=== PATIENT | female | born 1945 | race Caucasian/White ===

== ENCOUNTER → 2024-08-31 | Outpatient (CLI) | payer OTHER, SELFPAY ==
[2024-08-31 15:29] LABS: Glucose Estimated Average 128 mg/dL (80-131); Hemoglobin A1C 6.1 % Hgb (4.8-6.0)
[2024-08-31 15:33] LABS: Creatinine MALB Rnd Ur 82 mg/dL (30-125); Microalbumin, Random Urine < 3 mg/L (0-300)
[2024-08-31 15:33] LABS: Albumin, Serum 4.7 gm/dL (3.4-4.8); Anion Gap 8 (7-16); BUN/Creatinine Ratio 15 Ratio (12-20); Blood Urea Nitrogen 17 mg/dL (9-23); Calcium 9.7 mg/dL (8.3-10.6); Calcium (Corrected) 9.7 mg/dL (8.5-10.1); Carbon Dioxide 27.7 mMol/L (20.0-31.0); Chloride 104 mMol/L (98-107); Creatinine (Component) 1.1 mg/dL (0.6-1.3); Glucose 174 mg/dL (74-106); Osmolality,Calculated 284 (275-295); Phosphorous 3.2 mg/dL (2.4-5.1); Potassium 3.8 mMol/L (3.4-5.1); Sodium 140 mMol/L (136-145); Uric Acid 7.6 mg/dL (3.1-7.8); eGFR 51 See Note
== END | disposition home or self-care (01) ==
PROVIDERS: PCP Internal Medicine; Referring Provider Internal Medicine; Visit Provider Internal Medicine
DX: I10 Essential (primary) hypertension (principal)
CPT/HCPCS: 36415; 80069; 82043; 82570; 83036; 84550

== ENCOUNTER 2025-02-01 10:35 | Day surgery (SDC) | payer OTHER, SELFPAY ==
[2025-01-31 12:23] VITALS: BMI 21.9
[2025-02-01] VITALS (9 sets, daily range): BP systolic 80–160; BP diastolic 40–95; PULSE 61–89; RESP 11–26; TEMP 36.5–37; O2SAT 93–100; BMI 23.3
[2025-02-01] MEDS: SODIUM CHLORIDE 0.9% 500 ML 500 ML 20 ML IV (11:48)
[2025-02-01] MEDS: ONDANSETRON INJ 2 MG/ML INJ 2 ML 4 MG IV (11:54)
[2025-02-01] MEDS: fentaNYL CIT INJ 50 mCg/ML AMP 2ML (ASD USE ONLY) IV (11:56)
[2025-02-01] MEDS: MIDAZOLAM INJ 1 MG/ML VIAL 2 ML (ASD USE ONLY) 2 MG IV (11:56)
[2025-02-01] MEDS: DiphenhydrAMINE INJ 50 MG/ML VIAL 25 MG IV (12:02)
== END 2025-02-01 13:15 | disposition home or self-care (01) ==
PROVIDERS: PCP Internal Medicine; Referring Provider Specialist; Visit Provider Specialist
PROC: 0DBE8ZX Excision of Large Intestine, Via Natural or Artificial Opening Endoscopic, Diagnostic (ICD-10-PCS; CPT 45380; principal; 2025-02-01 10:30)
DX: K63.5 Polyp of colon (principal); K64.9 Unspecified hemorrhoids; K57.30 Diverticulosis of large intestine without perforation or abscess without bleeding; I25.10 Atherosclerotic heart disease of native coronary artery without angina pectoris; Z95.1 Presence of aortocoronary bypass graft
CPT/HCPCS: 45380; A4649; J1200; J2250; J2405; J3010; J7040

== ENCOUNTER → 2025-02-17 | Outpatient (CLI) | payer OTHER, SELFPAY ==
[2025-02-17 13:07] LABS: Uric Acid 7.5 mg/dL (3.1-7.8)
== END | disposition home or self-care (01) ==
LOC: COPL 11:43
PROVIDERS: PCP Internal Medicine; Referring Provider Internal Medicine; Visit Provider Internal Medicine
DX: M10.9 Gout, unspecified (principal)
CPT/HCPCS: 36415; 84550

== ENCOUNTER → 2025-02-20 | Outpatient (CLI) | payer OTHER, SELFPAY ==
--- NOTE | 2025-02-20 | XR_ITS ---
Examination: Foot, right, 3 views Technique: AP, oblique, lateral views foot, 3 views Date and time of exam: February 20, 2025 1229 hours INDICATIONS: Right foot redness pain and swelling beginning one week ago. FINDINGS: Prominent osteopenia No fracture No cortical bone destruction No opaque foreign body IMPRESSION: No fracture or cortical bone destruction
--- NOTE | 2025-02-20 | XR_ITS ---
Examination: Toes, right foot 3 views Technique: Toes AP oblique lateral 3 views right foot Date and time of exam: February 20, 2025 1233 hours INDICATIONS: Pain and swelling involving the toes beginning one week ago. FINDINGS: Prominent osteopenia No fractures. No cortical bone destruction IMPRESSION: No cortical bone destruction or foreign bodies Mild bunion deformity
== END | disposition home or self-care (01) ==
PROVIDERS: PCP Internal Medicine; Referring Provider Internal Medicine; Visit Provider Internal Medicine
DX: M79.671 Pain in right foot (principal); M21.611 Bunion of right foot
CPT/HCPCS: 73630; 73660

== ENCOUNTER → 2025-05-12 | Outpatient (CLI) | payer OTHER, SELFPAY ==
[2025-05-12 08:34] LABS: Basophils # (Auto) 0.1 Thou/mm3 (0.0-0.2); Basophils % (Auto) 1 % (0-2.5); Eosinophils # (Auto) 0.3 Thou/mm3 (0.0-0.5); Eosinophils % (Auto) 4 % (0-10); Hematocrit 42.7 % (36.0-46.0); Hemoglobin 13.7 g/dL (12.0-16.0); Immature Granulocytes Auto 0.03 Thou/mm3 (0.00-0.00); Lymphocytes # (Auto) 1.7 Thou/mm3 (1.0-4.8); Lymphocytes % (Auto) 19 % (10-50); Mean Corpuscular HGB Conc 32.1 g/dl (31.0-37.0); Mean Corpuscular Hemoglobin 28.8 pg (25.0-35.0); Mean Corpuscular Volume 90 fL (80-100); Monocytes # (Auto) 0.7 Thou/mm3 (0.0-0.8); Monocytes % (Auto) 8 % (0-12); Neutrophils # (Auto) 5.8 Thou/mm3 (1.8-7.7); Neutrophils % (Auto) 67 % (37-80); Nucleated Red Blood Cell # 0.00 Thou/mm3 (0.00-0.00); Nucleated Red Blood Cell % 0 /100 WBC (0); Platelet Count 303 Thou/mm3 (140-440); RDW Standard Deviation 43.8 fL (36.4-46.3); Red Blood Count 4.75 Miln/mm3 (4.00-5.20); White Blood Count 8.6 Thou/mm3 (3.6-11.0)
[2025-05-12 08:43] LABS: Glucose Estimated Average 143 mg/dL (80-131); Hemoglobin A1C 6.6 % Hgb (4.8-6.0)
[2025-05-12 08:53] LABS: Alanine Aminotransferase 10 U/L (10-49); Albumin, Serum 4.2 gm/dL (3.4-4.8); Albumin/Globulin Ratio 2.0 (1.2-2.2); Alkaline Phosphatase 82 U/L (46-116); Amylase 52 U/L (30-118); Anion Gap 10 (7-16); Aspartate Amino Transferase 16 U/L (0-34); BUN/Creatinine Ratio 20 Ratio (12-20); Bilirubin,Total 0.3 mg/dL (0.3-1.2); Blood Urea Nitrogen 20 mg/dL (9-23); Calcium 9.6 mg/dL (8.3-10.6); Calcium (Corrected) 9.6 mg/dL (8.5-10.1); Carbon Dioxide 27.3 mMol/L (20.0-31.0); Cardiac Risk Estimate 4.3 RATIO (3.7-5.6); Chloride 107 mMol/L (98-107); Cholesterol 198 mg/dL (132-200); Creatinine (Component) 1.0 mg/dL (0.6-1.3); Free T4 (Free Thyroxine) 1.28 ng/dL (0.89-1.76); Globulin 2.1 gm/dL (2.3-3.5); Glucose 117 mg/dL (74-106); HDL Cholesterol 46 mg/dL (40-60); LDL Cholesterol,Calculated 129 mg/dL (0-130); Lipase 61 U/L (12-53); Osmolality,Calculated 290 (275-295); Potassium 4.8 mMol/L (3.4-5.1); Sodium 144 mMol/L (136-145); Thyroid Stimulating Hormone 0.58 uIU/mL (0.55-4.78); Total Protein 6.3 gm/dL (5.7-8.2); Triglycerides 116 mg/dL (30-150); Uric Acid 6.9 mg/dL (3.1-7.8); eGFR 57 See Note
[2025-05-12 08:54] LABS: Vitamin D 25 Hydroxy Total 45.2 ng/mL (7.3-40.2)
[2025-05-12 09:09] LABS: Creatinine MALB Rnd Ur 103 mg/dL (30-125); Microalbumin, Random Urine < 3 mg/L (0-300)
== END | disposition home or self-care (01) ==
LOC: COPL 07:21
PROVIDERS: PCP Internal Medicine; Referring Provider Internal Medicine; Visit Provider Internal Medicine
DX: Z00.00 Encounter for general adult medical examination without abnormal findings (principal); E55.9 Vitamin D deficiency, unspecified
CPT/HCPCS: 36415; 80053; 80061; 82043; 82150; 82306; 82570; 83036; 83690; 84439; 84443; 84550; 85025

== ENCOUNTER 2025-09-13 06:28 | Day surgery (SDC) | payer OTHER, SELFPAY ==
[2025-09-11 15:50] VITALS: BMI 22.8
--- NOTE | 2025-09-12 07:00 | EKG_ITS ---
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 : 1945 Requested By: Villa Boss Order Number: [id number] Reading MD: Villa Boss Measurements Intervals [place] Rate: 60 P: 53 MO: 148 QRS: 70 QRSD: 85 T: 85 QT: 402 QTc: 403 Interpretive Statements SINUS RHYTHM WITH OCCASIONAL SUPRAVENTRICULAR PREMATURE COMPLEXES POSSIBLE LEFT ATRIAL ENLARGEMENT [-0.1mV P WAVE IN V1/V2] LOW QRS VOLTAGE IN PRECORDIAL LEADS [QRS DEFLECTION < 1.0 mV IN CHEST LEADS] SEPTAL MYOCARDIAL INFARCTION , OF INDETERMINATE AGE [40+ ms Q WAVE IN V1/V2] Compared to ECG 02/12/2022 12:48:35 Low QRS voltage now present Myocardial infarct finding now present Short MO interval no longer present T-wave abnormality no longer present /store/S0/[id number]/ecg/[id number].pdf
[2025-09-12 12:01] LABS: Basophils # (Auto) 0.1 Thou/mm3 (0.0-0.2); Basophils % (Auto) 1 % (0-2.5); Eosinophils # (Auto) 0.3 Thou/mm3 (0.0-0.5); Eosinophils % (Auto) 3 % (0-10); Hematocrit 43.9 % (36.0-46.0); Hemoglobin 14.5 g/dL (12.0-16.0); Immature Granulocytes Auto 0.03 Thou/mm3 (0.00-0.00); Lymphocytes # (Auto) 1.7 Thou/mm3 (1.0-4.8); Lymphocytes % (Auto) 19 % (10-50); Mean Corpuscular HGB Conc 33.0 g/dl (31.0-37.0); Mean Corpuscular Hemoglobin 29.7 pg (25.0-35.0); Mean Corpuscular Volume 90 fL (80-100); Monocytes # (Auto) 0.8 Thou/mm3 (0.0-0.8); Monocytes % (Auto) 9 % (0-12); Neutrophils # (Auto) 5.9 Thou/mm3 (1.8-7.7); Neutrophils % (Auto) 67 % (37-80); Nucleated Red Blood Cell # 0.00 Thou/mm3 (0.00-0.00); Nucleated Red Blood Cell % 0 /100 WBC (0); Platelet Count 238 Thou/mm3 (140-440); RDW Standard Deviation 43.7 fL (36.4-46.3); Red Blood Count 4.88 Miln/mm3 (4.00-5.20); White Blood Count 8.8 Thou/mm3 (3.6-11.0)
[2025-09-12 12:19] LABS: INR 1.0 (0.9-1.3); Partial Thromboplastin Time 25.4 Seconds (22.0-36.0); Prothrombin Time 10.3 Seconds (9.0-12.2)
[2025-09-12 14:37] LABS: Anion Gap 12 (7-16); Calcium 10.1 mg/dL (8.3-10.6); Carbon Dioxide 26.0 mMol/L (20.0-31.0); Chloride 107 mMol/L (98-107); Potassium 5.0 mMol/L (3.4-5.1); Sodium 145 mMol/L (136-145)
[2025-09-12 14:48] LABS: BUN/Creatinine Ratio 15 Ratio (12-20); Blood Urea Nitrogen 18 mg/dL (9-23); Creatinine (Component) 1.2 mg/dL (0.6-1.3); Estimated Creatinine Clearance 30.1 mL/min (>60); Glucose 96 mg/dL (74-106); Osmolality,Calculated 290 (275-295); eGFR 46 See Note
[2025-09-13] VITALS (17 sets, daily range): BP systolic 120–169; BP diastolic 48–80; PULSE 47–66; RESP 10–21; TEMP 36.2–36.4; O2SAT 96–100
--- NOTE | 2025-09-13 07:20 | CHAP ---
Visited with patient and gave encouragement and prayer.
--- NOTE | 2025-09-13 08:43 | ESOP_ITS ---
RE: NICOLAS CONNELL : 1945 DATE OF OPERATION: 09/13/2025 PROCEDURES PERFORMED: 1. Diagnostic left heart cardiac catheterization, selective coronary angiogram, left ventricular angiogram, bypass graft angiogram, CPT 82839. 2. Selective cannulation of left subclavian artery, CPT 68263. 3. Iliofemoral angiography followed by manual compression. 4. Ultrasound-guided access to right femoral artery. DIAGNOSES: Coronary artery disease status post bypass surgery, recurrent shortness of breath, chest pain and abnormal stress test. HISTORY AND INDICATION: The patient is a 80-year-old lady with a history of CAD, bypass graft surgery, stent placement in the LAD, denies shortness of breath, angina equivalent syndrome. Cardiac stress test, nuclear scan showed lateral ischemia. Coronary angiogram recommended to assess the patient is a candidate for coronary intervention and revascularization. PROCEDURE DETAILS: The patient was brought to the cardiac cath lab radiological technologist and was given 1 mg of Versed and 50 mcg of fentanyl for conscious sedation. Right radial artery was too small, went right femoral approach. Right femoral artery was cannulated with micropuncture technique using ultrasound guidance and a 5-Yemeni sheath was introduced. Selective right and left coronary angiogram was performed by FR4 and FL4 diagnostic catheters. Left heart catheterization and LV angiogram were performed by JR4 diagnostic catheter. Selective cannulation of right coronary artery bypass graft was performed by FR4 diagnostic catheter. Selective cannulation of left subclavian artery performed. Left subclavian angiogram was performed by FR4 diagnostic catheter. The patient tolerated the procedure well with no complications. Coronary angiogram showed the following findings: The right coronary artery is large and dominant, showed mild plaque with 30% stenosis in the proximal RCA. PDA and PLV branches are normal in caliber. Right radial artery bypass graft to the right coronary is patent. Left coronary system: The left main coronary artery is normal. The left anterior descending artery has a stent in the prox to mid segment which is widely patent. The diagonal branch of the LAD is completely occluded, filling via collaterals from the right coronary system. The circumflex artery is non-dominant and appears normal. The left internal mammary artery is non-matured as the LAD was patent, it is shut off. The subclavian artery appears normal. The vertebral artery appears normal. Iliofemoral angiogram showed that there is evidence of calcification but no femoral occlusion. The site of cannulation is too close to the bifurcation, hence manual compression was applied. Left ventricular pressure is 120, EDP is 5, aortic pressure is 120/60. There is no gradient across the aortic valve. Left ventricular angiogram showed evidence of anterolateral hypokinesis, ejection fraction 45-50%. SUMMARY OF FINDINGS: Is suggestive of: 1. Mild LV dysfunction with anterolateral hypokinesis, possibly due to diagonal branch occlusion. 2. Widely patent stent in the left anterior descending artery. 3. Total occlusion of the first diagonal branch of the LAD, filling via collaterals. 4. Widely patent right coronary artery as well as bypass graft with mild stenosis of the proximal RCA. 5. 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 RECOMMENDATIONS: The patient is recommended to maximum medical management. PROGNOSIS: Fair. Continue statin therapy and keep the LDL cholesterol below 55, and aggressive medical management. DT: 08:28:33 TT: 08:42:00 Ref: [id number] - TID: [id number]
--- NOTE | 2025-09-13 09:21 | PC.NURSE ---
0825 patient is awake, alert, breathing unlabored, s/p LHC by Dr. Chery, arterial sheath present to right groin. Report received from Sasha RUIZ, patient to recover for 4 hours. 0842 arterial sheath removed, manual pressure applied 0902 manual pressure removed from right groin, no bleeding or hematoma noted,site covered with 4x4 gauze and tegaderm. Hemostasis achieved.
--- NOTE | 2025-09-13 12:30 | PC.NURSE ---
1230 patient is awake, alert, breathing unlabored, dressing to right groin dry with no bleeding or hematoma, patient able to tolerate lunch tray with no nausea or vomiting, able to void 250ml via purewic device, discharge instructions have been given to patient and family member, waiting to monitor patient until 1300 to be able to discharge patient home. Report given to Alexandra RUIZ.
== END 2025-09-13 13:00 | disposition home or self-care (01) ==
PROVIDERS: PCP Internal Medicine; Referring Provider Internal Medicine Cardiovascular Disease; Visit Provider Internal Medicine Cardiovascular Disease
PROC: (CPT 93459; principal; 2025-09-13 07:30)
DX: I25.118 Atherosclerotic heart disease of native coronary artery with other forms of angina pectoris (principal); Z95.1 Presence of aortocoronary bypass graft; Z95.5 Presence of coronary angioplasty implant and graft; E11.9 Type 2 diabetes mellitus without complications; E78.00 Pure hypercholesterolemia, unspecified; I10 Essential (primary) hypertension; I25.82 Chronic total occlusion of coronary artery; Z01.810 Encounter for preprocedural cardiovascular examination; Z79.82 Long term (current) use of aspirin; Z79.899 Other long term (current) drug therapy
CPT/HCPCS: 93459; 36215; G0278; 36415; 80048; 85025; 85610; 85730; 93005; 99152; A4649; C1725; C1769; C1894; J0168; J0461; J1643; J2250; J2312; J2371; J2405; J3010; J3490; J2305